=== PATIENT | female | born 1970 | race African-American/Black ===

== ENCOUNTER 2016-09-01 05:17 | Emergency (ER) | payer MEDICARE, MEDICAID ==
[~2016-09-01] VITALS: Ht 170.2 cm; Wt 105.0 kg
[~2016-09-01 05:17] MED LIST: ALBU2.5V13; AMLO10TA4; GLIP10TA10; LISI-604
[2016-09-01] MEDS ORDERED: KETOROLAC 30MG/ML VIAL IV ONE (07:00)
[2016-09-01 07:33] VITALS: BP 142/98
== END 2016-09-01 10:21 | disposition home or self-care (01) ==
LOC: ER 05:20
DX: M25.561 Pain in right knee (principal); Z79.899 Other long term (current) drug therapy; J45.909 Unspecified asthma, uncomplicated; I10 Essential (primary) hypertension; F17.200 Nicotine dependence, unspecified, uncomplicated; E11.39 Type 2 diabetes mellitus with other diabetic ophthalmic complication
CPT/HCPCS: 73564; 96374; 99284; J1885; L1830

== ENCOUNTER 2016-10-24 23:03 | Emergency (ER) | payer OTHER, MEDICARE ==
[~2016-10-24] VITALS: Ht 170.2 cm; Wt 110.0 kg
[2016-10-25] MEDS ORDERED: ACETAMINOPHEN 500MG TABLET PO ONE (01:30)
[2016-10-25 01:54] LABS: BASOPHILS % 0.5 % (0.0-2.0); EOSINOPHILS % 4.7 % (0.0-5.0); HEMATOCRIT. 40.9 % (36.0-48.0); HEMOGLOBIN. 13.8 g/dL (12.0-16.0); LYMPHOCYTES % 43.9 % (20.0-50.0); MEAN CORPUSCULAR HEMOGLOBIN 29.8 pg (28.0-32.0); MEAN CORPUSCULAR VOLUME 88.5 fL (81.0-99.0); MEAN PLATELET VOLUME 8.5 fl (7.4-10.4); MONOCYTES % 7.3 % (2.0-8.0); NEUTROPHILS % 43.6 % (40.0-76.0); PLATELET 295 x1000/uL (130-400); RED BLOOD CELL COUNT 4.62 mill/uL (4.2-5.4); RED CELL DISTRIBUTION WIDTH 13.3 % (11.6-14.6)
[2016-10-25 01:56] LABS: CHLORIDE 106 mEq/L (98-107)
[2016-10-25 01:57] LABS: HCG SCREEN NEGATIVE
[2016-10-25 02:06] LABS: CARBON DIOXIDE 29 mEq/L (21-32); ETHANOL BLOOD < 10 mg/dL
[2016-10-25 03:08] LABS: CLARITY URINE CLEAR (CLEAR); COLOR URINE YELLOW (YELLOW); GLUCOSE URINE NEGATIVE (NEGATIVE); KETONES URINE NEGATIVE (NEGATIVE); LEUKOCYTE ESTERASE URINE NEGATIVE (NEGATIVE); NITRITE URINE NEGATIVE (NEGATIVE); OCCULT BLOOD URINE 1+ (NEGATIVE); PROTEIN URINE TRACE (NEGATIVE); SPECIFIC GRAVITY URINE 1.014 (1.005-1.030); UROBILINOGEN URINE 0.2 E.U./dL (0.2-1.0)
[2016-10-25 03:36] LABS: *AMPHETAMINES SCREEN URINE NEGATIVE (NEGATIVE); *BARBITURATES SCREEN URINE NEGATIVE (NEGATIVE); *BENZODIAZEPINES SCREEN URINE NEGATIVE (NEGATIVE); *COCAINE SCREEN URINE NEGATIVE (NEGATIVE); METHADONE URINE SCREEN NEGATIVE (NEGATIVE); OPIATES URINE SCREEN NEGATIVE (NEGATIVE); PHENCYCLIDINE URINE SCREEN NEGATIVE (NEGATIVE)
[2016-10-25 03:57] LABS: CANNABINOID URINE SCREEN PRESUMTIVE POSITIVE (NEGATIVE)
[2016-10-25 04:35] VITALS: BP 156/92
== END 2016-10-25 07:01 | disposition home or self-care (01) ==
LOC: ER 23:03
DX: S00.03XA Contusion of scalp, initial encounter (principal); M60.9 Myositis, unspecified; M79.1 Myalgia; F12.10 Cannabis abuse, uncomplicated; J45.909 Unspecified asthma, uncomplicated; I10 Essential (primary) hypertension; E11.9 Type 2 diabetes mellitus without complications; V03.90XA Pedestrian on foot injured in collision with car, pick-up truck or van, unspecified whether traffic or nontraffic accident, initial encounter; Y93.89 Activity, other specified; Y92.89 Other specified places as the place of occurrence of the external cause; Y99.8 Other external cause status
CPT/HCPCS: 36415; 70450; 71010; 72125; 80053; 80305; 80307; 80329; 81001; 84703; 85025; 99285; G0482

== ENCOUNTER 2016-11-21 14:02 | Emergency (ER) | payer OTHER, MEDICARE ==
[~2016-11-21] VITALS: Ht 167.6 cm; Wt 110.0 kg
[2016-11-21] MEDS ORDERED: KETOROLAC 60MG/2ML VIAL IM ONE (15:00)
[2016-11-21 15:07] LABS: BASOPHILS % 0.9 % (0.0-2.0); EOSINOPHILS % 4.6 % (0.0-5.0); HEMATOCRIT. 40.3 % (36.0-48.0); HEMOGLOBIN. 13.2 g/dL (12.0-16.0); LYMPHOCYTES % 33.6 % (20.0-50.0); MEAN CORPUSCULAR HEMOGLOBIN 28.8 pg (28.0-32.0); MEAN CORPUSCULAR VOLUME 88.2 fL (81.0-99.0); MEAN PLATELET VOLUME 8.8 fl (7.4-10.4); MONOCYTES % 6.4 % (2.0-8.0); NEUTROPHILS % 54.5 % (40.0-76.0); PLATELET 331 x1000/uL (130-400); RED BLOOD CELL COUNT 4.57 mill/uL (4.2-5.4); RED CELL DISTRIBUTION WIDTH 13.7 % (11.6-14.6)
[2016-11-21 15:11] LABS: CHLORIDE 105 mEq/L (98-107)
[2016-11-21 15:17] LABS: CARBON DIOXIDE 27 mEq/L (21-32)
[2016-11-21 15:22] LABS: HCG SCREEN NEGATIVE
[2016-11-21] MEDS: AMLODIPINE 5MG TABLET PO ONE ×2 (16:23→16:45)
[2016-11-21 17:06] VITALS: BP 178/117
== END 2016-11-21 18:01 | disposition home or self-care (01) ==
LOC: ER 14:02
DX: M25.562 Pain in left knee (principal); M25.561 Pain in right knee; R42 Dizziness and giddiness; N92.0 Excessive and frequent menstruation with regular cycle; J45.909 Unspecified asthma, uncomplicated; I10 Essential (primary) hypertension; E11.9 Type 2 diabetes mellitus without complications; F31.9 Bipolar disorder, unspecified; F12.10 Cannabis abuse, uncomplicated; Z96.659 Presence of unspecified artificial knee joint
CPT/HCPCS: 36415; 80048; 84703; 85025; 93005; 96372; 99285; J1885

== ENCOUNTER 2016-11-23 13:19 | Emergency (ER) | payer MEDICARE ==
[~2016-11-23] VITALS: Ht 162.6 cm; Wt 80.0 kg
[2016-11-23] MEDS ORDERED: MORPHINE SULFATE 4 MG/ML CPJ (NOT FOR IM USE) IV STA (14:41)
[2016-11-23] MEDS ORDERED: ONDANSETRON HCL 4MG/2ML VIAL IV STA (14:41)
[2016-11-23] MEDS ORDERED: CLONIDINE 0.1MG TABLET PO ONE (14:45)
[2016-11-23 15:15] LABS: BASOPHILS % 0.8 % (0.0-2.0); HEMOGLOBIN. 13.5 g/dL (12.0-16.0); LYMPHOCYTES % 41.4 % (20.0-50.0); MEAN CORPUSCULAR VOLUME 88.2 fL (81.0-99.0); MEAN PLATELET VOLUME 8.6 fl (7.4-10.4); MONOCYTES % 7.9 % (2.0-8.0); NEUTROPHILS % 47.9 % (40.0-76.0); PLATELET 328 x1000/uL (130-400); RED BLOOD CELL COUNT 4.65 mill/uL (4.2-5.4); RED CELL DISTRIBUTION WIDTH 13.7 % (11.6-14.6)
[2016-11-23 15:21] LABS: HCG SCREEN NEGATIVE
[2016-11-23 15:22] LABS: CHLORIDE 106 mEq/L (98-107)
[2016-11-23 15:24] LABS: PROTHROMBIN TIME 10.8 sec (9.4-11.6)
[2016-11-23 15:25] LABS: CARBON DIOXIDE 26 mEq/L (21-32)
[2016-11-23 15:43] LABS: CLARITY URINE CLOUDY (CLEAR); COLOR URINE ORANGE (YELLOW); GLUCOSE URINE NEGATIVE (NEGATIVE); KETONES URINE 1+ (NEGATIVE); LEUKOCYTE ESTERASE URINE NEGATIVE (NEGATIVE); NITRITE URINE NEGATIVE (NEGATIVE); OCCULT BLOOD URINE 3+ (NEGATIVE); PROTEIN URINE 2+ (NEGATIVE); SPECIFIC GRAVITY URINE 1.026 (1.005-1.030)
[2016-11-23 15:59] LABS: *AMPHETAMINES SCREEN URINE NEGATIVE (NEGATIVE); *BARBITURATES SCREEN URINE NEGATIVE (NEGATIVE); *BENZODIAZEPINES SCREEN URINE NEGATIVE (NEGATIVE); *COCAINE SCREEN URINE NEGATIVE (NEGATIVE); METHADONE URINE SCREEN NEGATIVE (NEGATIVE); PHENCYCLIDINE URINE SCREEN NEGATIVE (NEGATIVE)
[2016-11-23 16:01] LABS: CANNABINOID URINE SCREEN PRESUMTIVE POSITIVE (NEGATIVE); OPIATES URINE SCREEN PRESUMTIVE POSITIVE (NEGATIVE)
[2016-11-23 16:44] VITALS: BP 158/98
== END 2016-11-23 16:56 | disposition home or self-care (01) ==
LOC: ER 13:59
DX: R53.1 Weakness (principal); E11.9 Type 2 diabetes mellitus without complications; I10 Essential (primary) hypertension; J45.909 Unspecified asthma, uncomplicated; E78.00 Pure hypercholesterolemia, unspecified
CPT/HCPCS: 36415; 71010; 80053; 80305; 81001; 83690; 84703; 85025; 85610; 99285

== ENCOUNTER 2017-09-05 11:02 | Emergency (ER) | payer MEDICARE ==
[~2017-09-05] VITALS: Ht 175.3 cm; Wt 91.0 kg
[2017-09-05] MEDS ORDERED: ACETAMINOPHEN 325MG TABLET PO ONE (11:45)
[2017-09-05 12:00] VITALS: BP 157/73
[2017-09-05 12:01] LABS: BASOPHILS % 1.3 % (0.0-2.0); EOSINOPHILS % 1.3 % (0.0-5.0); HEMATOCRIT. 39.2 % (36.0-48.0); HEMOGLOBIN. 12.9 g/dL (12.0-16.0); LYMPHOCYTES % 55.5 % (20.0-50.0); MEAN CORPUSCULAR HEMOGLOBIN 29.4 pg (28.0-32.0); MEAN CORPUSCULAR VOLUME 89.6 fL (81.0-99.0); MEAN PLATELET VOLUME 8.3 fl (7.4-10.4); MONOCYTES % 6.4 % (2.0-8.0); NEUTROPHILS % 35.5 % (40.0-76.0); PLATELET 355 x1000/uL (130-400); RED BLOOD CELL COUNT 4.38 mill/uL (4.2-5.4); RED CELL DISTRIBUTION WIDTH 13.2 % (11.6-14.6)
[2017-09-05 12:11] LABS: CHLORIDE 104 mEq/L (98-107)
[2017-09-05 12:15] LABS: ETHANOL BLOOD < 10 mg/dL
== END 2017-09-05 13:40 | disposition left against medical advice (07) ==
LOC: ER 11:16
DX: F28 Other psychotic disorder not due to a substance or known physiological condition (principal); E11.9 Type 2 diabetes mellitus without complications; I10 Essential (primary) hypertension; F31.9 Bipolar disorder, unspecified; Z59.0 Homelessness; Z79.84 Long term (current) use of oral hypoglycemic drugs; Z86.73 Personal history of transient ischemic attack (TIA), and cerebral infarction without residual deficits
CPT/HCPCS: 36415; 80053; 80307; 80329; 85025; 99284; G0482

== ENCOUNTER 2021-04-22 01:54 | Emergency (ER) | payer MEDICARE, OTHER ==
[~2021-04-22] VITALS: Ht 167.6 cm; Wt 90.0 kg
[~2021-04-22 01:54] MED LIST changes: -LISI-604; +LISI20TA31
[2021-04-22 01:59] VITALS: BP 152/90
== END 2021-04-22 02:35 | disposition home or self-care (01) ==
LOC: ER 01:54
DX: R05.9 Cough, unspecified (principal); F91.8 Other conduct disorders; H54.7 Unspecified visual loss; I10 Essential (primary) hypertension; E11.9 Type 2 diabetes mellitus without complications; J45.909 Unspecified asthma, uncomplicated; Z79.899 Other long term (current) drug therapy; Z79.51 Long term (current) use of inhaled steroids
CPT/HCPCS: 99283

== ENCOUNTER 2021-04-22 06:12 | Emergency (ER) | payer MEDICARE, OTHER ==
[~2021-04-22] VITALS: Ht 167.6 cm; Wt 129.0 kg
[2021-04-22 06:40] VITALS: BP 183/123
== END 2021-04-22 19:51 | disposition left against medical advice (07) ==
LOC: ER 06:12
DX: Z53.21 Procedure and treatment not carried out due to patient leaving prior to being seen by health care provider (principal)

== ENCOUNTER 2022-07-17 21:05 | Emergency (ER) | payer MEDICARE, MEDICAID ==
[~2022-07-17] VITALS: Ht 167.6 cm; Wt 104.0 kg
[2022-07-17] MEDS ORDERED: KETOROLAC 30MG/ML VIAL IV STA (21:30)
[2022-07-17 22:16] LABS: BASOPHILS % 0.8 % (0.0-2.0); EOSINOPHILS % 4.3 % (0.0-5.0); HEMATOCRIT. 39.9 % (36.0-48.0); HEMOGLOBIN. 13.1 g/dL (12.0-16.0); LYMPHOCYTES % 44.3 % (20.0-50.0); MEAN CORPUSCULAR HEMOGLOBIN 28.9 pg (28.0-32.0); MEAN CORPUSCULAR VOLUME 88.3 fL (81.0-99.0); MEAN PLATELET VOLUME 8.5 fl (7.4-10.4); MONOCYTES % 5.7 % (2.0-8.0); NEUTROPHILS % 44.9 % (40.0-76.0); PLATELET 330 x1000/uL (130-400); RED BLOOD CELL COUNT 4.52 mill/uL (4.2-5.4); RED CELL DISTRIBUTION WIDTH 13.3 % (11.6-14.6)
[2022-07-17 22:25] LABS: PROTHROMBIN TIME 10.5 sec (9.6-11.0)
[2022-07-17 22:36] LABS: CHLORIDE 103 mEq/L (98-107)
[2022-07-18 00:30] VITALS: BP 150/98
[2022-07-18] MEDS ORDERED: HYDROCHLOROTHIAZIDE 25MG TABLET PO ONE (00:30)
[2022-07-18] MEDS ORDERED: NAPR-681 MT (01:03)
== END 2022-07-18 01:56 | disposition home or self-care (01) ==
LOC: ER 21:05
DX: R10.9 Unspecified abdominal pain (principal); R51.9 Headache, unspecified; I10 Essential (primary) hypertension; E11.9 Type 2 diabetes mellitus without complications; W01.0XXA Fall on same level from slipping, tripping and stumbling without subsequent striking against object, initial encounter; Y93.89 Activity, other specified; Y92.89 Other specified places as the place of occurrence of the external cause; Y99.8 Other external cause status
CPT/HCPCS: 36415; 70450; 71045; 74176; 80053; 85025; 85610; 86850; 86900; 86901; 93005; 96374; 99285; J1885

== ENCOUNTER 2022-07-18 04:56 | Emergency (ER) | payer MEDICARE, MEDICAID ==
[~2022-07-18] VITALS: Ht 167.6 cm; Wt 104.0 kg
[~2022-07-18 04:56] MED LIST changes: +NAPR-681 MT
[2022-07-18 05:14] VITALS: BP 152/108
== END 2022-07-18 08:23 | disposition home or self-care (01) ==
LOC: ER 04:56
DX: Z00.00 Encounter for general adult medical examination without abnormal findings (principal)
CPT/HCPCS: 99281

== ENCOUNTER 2022-08-21 22:25 | Emergency (ER) | payer MEDICARE, MEDICAID ==
[~2022-08-21] VITALS: Ht 172.7 cm; Wt 100.0 kg
[2022-08-21 22:29] VITALS: O2SAT 100
[2022-08-21 23:37] LABS: BASOPHILS % 0.9 % (0.0-2.0); HEMATOCRIT. 39.2 % (36.0-48.0); HEMOGLOBIN. 12.6 g/dL (12.0-16.0); MEAN CORPUSCULAR HEMOGLOBIN 28.5 pg (28.0-32.0); MEAN CORPUSCULAR VOLUME 88.5 fL (81.0-99.0); MEAN PLATELET VOLUME 8.5 fl (7.4-10.4); MONOCYTES % 7.2 % (2.0-8.0); NEUTROPHILS % 36.9 % (40.0-76.0); PLATELET 317 x1000/uL (130-400); RED BLOOD CELL COUNT 4.42 mill/uL (4.2-5.4); RED CELL DISTRIBUTION WIDTH 13.5 % (11.6-14.6)
[2022-08-21 23:42] LABS: CHLORIDE 108 mEq/L (98-107)
[2022-08-21 23:52] LABS: ETHANOL BLOOD < 10 mg/dL
[2022-08-22 00:23] LABS: *AMPHETAMINES SCREEN URINE NEGATIVE (NEGATIVE); *BARBITURATES SCREEN URINE NEGATIVE (NEGATIVE); *BENZODIAZEPINES SCREEN URINE NEGATIVE (NEGATIVE); *COCAINE SCREEN URINE NEGATIVE (NEGATIVE); CANNABINOID URINE SCREEN PRESUMTIVE POSITIVE (NEGATIVE); METHADONE URINE SCREEN NEGATIVE (NEGATIVE); OPIATES URINE SCREEN NEGATIVE (NEGATIVE); PHENCYCLIDINE URINE SCREEN NEGATIVE (NEGATIVE)
[2022-08-22] MEDS ORDERED: LORAZEPAM 2MG/ML CPJ IM STA (10:24)
[2022-08-22] MEDS ORDERED: OLANZAPINE 10 MG/VIAL IM ONE (10:30)
[2022-08-22] MEDS ORDERED: OLANZAPINE 10 MG/VIAL IM NR (11:00)
[2022-08-22] MEDS ORDERED: OLANZAPINE 5MG TABLET ODT PO SCH (11:00)
[2022-08-22] MEDS ORDERED: LORAZEPAM 2MG/ML CPJ IM NR (11:00)
[2022-08-22] MEDS: OLANZAPINE 5MG TABLET ODT PO SCH (17:49)
[2022-08-23] MEDS ORDERED: LISINOPRIL 20MG TABLET PO NR (03:45)
[2022-08-23] MEDS ORDERED: AMLODIPINE 10MG TABLET PO NR (03:45)
[2022-08-23] MEDS: OLANZAPINE 5MG TABLET ODT PO SCH ×2 (09:38→17:00)
[2022-08-23] MEDS ORDERED: OLANZAPINE 5MG TABLET ODT PO ONE (13:45)
[2022-08-23] MEDS ORDERED: QUETIAPINE FUMARATE 50MG TABLET PO STA (23:02)
[2022-08-24] MEDS: OLANZAPINE 5MG TABLET ODT PO SCH (09:36)
[2022-08-24 13:57] VITALS: BP 159/81; PULSE 80; RESP 20; TEMP 98
== END 2022-08-24 13:58 | disposition home or self-care (01) ==
LOC: ER 22:25
DX: F20.9 Schizophrenia, unspecified (principal); E87.6 Hypokalemia; I10 Essential (primary) hypertension; E11.9 Type 2 diabetes mellitus without complications; J45.909 Unspecified asthma, uncomplicated; Z20.822 Contact with and (suspected) exposure to COVID-19; Z90.49 Acquired absence of other specified parts of digestive tract; Z59.00 Homelessness unspecified
CPT/HCPCS: 80053; 80305; 80307; 80329; 80320; 82962; 85025; 36415; 99285; 87426; 96372; C9803; J3490; J2060; 99284; G0480

== ENCOUNTER 2023-08-08 21:07 | Emergency (ER) | payer MEDICAID, MEDICARE ==
[~2023-08-08] VITALS: Ht 170.2 cm; Wt 77.0 kg
[2023-08-08 21:11] VITALS: BP 145/96; PULSE 96; RESP 18; TEMP 98.4; O2SAT 100
[2023-08-09] MEDS: IBUPROFEN 600MG TABLET PO ONE (01:34)
[2023-08-09] MEDS ORDERED: QUET100T MT (08:16)
[2023-08-09] MEDS ORDERED: DIPH25CA83 MT (08:16)
[2023-08-09] MEDS ORDERED: CYCL5TAB MT (08:16)
[2023-08-09] MEDS ORDERED: TOPUD MT (08:17)
== END 2023-08-09 02:37 | disposition home or self-care (01) ==
LOC: ER 21:07
DX: M79.605 Pain in left leg (principal); J45.909 Unspecified asthma, uncomplicated; F32.A Depression, unspecified; E11.9 Type 2 diabetes mellitus without complications; E78.00 Pure hypercholesterolemia, unspecified; I10 Essential (primary) hypertension; Z98.890 Other specified postprocedural states; Z90.49 Acquired absence of other specified parts of digestive tract
CPT/HCPCS: 73590; 93005; 99283

== ENCOUNTER 2023-08-09 02:19 | Emergency (ER) | payer MEDICARE ==
[~2023-08-09] VITALS: Ht 167.6 cm; Wt 84.0 kg
[2023-08-09 02:39] VITALS: O2SAT 100
[2023-08-09 07:45] VITALS: BP 152/88; PULSE 90; RESP 17; TEMP 98.5
[2023-08-09] MEDS ORDERED: DIPH25CA83 MT (08:16)
[2023-08-09] MEDS ORDERED: CYCL5TAB MT (08:16)
[2023-08-09] MEDS ORDERED: QUET100T MT (08:16)
[2023-08-09] MEDS ORDERED: TOPUD MT (08:17)
== END 2023-08-09 08:46 | disposition home or self-care (01) ==
LOC: ER 02:19
DX: M79.605 Pain in left leg (principal); J45.909 Unspecified asthma, uncomplicated; E11.9 Type 2 diabetes mellitus without complications; E78.00 Pure hypercholesterolemia, unspecified; I10 Essential (primary) hypertension; F32.A Depression, unspecified; Z98.890 Other specified postprocedural states; Z90.49 Acquired absence of other specified parts of digestive tract
CPT/HCPCS: 99283